=== PATIENT | male | born 1990 | race Caucasian/White ===

== ENCOUNTER 2023-02-07 05:30 | Day surgery (SDC) | payer OTHER ==
--- NOTE | 2023-02-07 07:30 | NUR ---
PATIENT ARRIVES TO UNIT WITH MOTHER AFTER STAFF ASSISTED PATIENT FROM WAITING ROOM. PATIENT WITH UNSTEADY GAIT. PUPILS AT PINPOINT. SLURRED SPEECH. ASKED PATIENT WHEN LAST OPIATE USE WAS HE STATED 0600 MOTHER STATED HE USED RIGHT BEFORE WALKING IN. PATIENT BECAME VERBALLY AGGRESSIVE. PATIENT SIGNED CONSENT. ATTEMPTED TO OBTAIN MEDICALHISTORY FROM PATIENT. PATIENT CONTINUED TO BE VERBALLY AGGRESSIVE STATING HE DOES NOT WANT THE PROCEDURE. NOTIFIED MEMBER OF TECHNICAL STAFF AND ANR TEAM. PATIENT DEPARTED UNIT TO MOTHER. CHARGE NURSE RUBY TO TALK TO PATIENT AND MOTHER. PATIENT STILL VERBALLY AGRESSIVE. MEMBER OF TECHNICAL STAFF JUDITH CALLED MOTHER AND EXPLAINED TO HER THAT WE ARE UNABLE TO TREAT HIM IN THIS STATE. OFFERRED TO REEVALUATE HIM IN 2 HOURS. MOTHER AGREED.
--- NOTE | 2023-02-07 07:40 | NUR ---
spoke with patient mother explained that in his state and how he is being aggressive towards staff we cannot treat him. offered to reevaluate him in 2 hours and proceed with treatment.
--- NOTE | 2023-02-07 10:00 | NUR ---
patient and mother arrive to [facility]. patient with no shoes shouting and cursing mother crying. mother asked me to call police because she is in fear to get back in car with patient because of how aggressive he is being towards her. i called 911. apd arrived spoke with patient. patient refused treatment at this time. explained options to mother and to contact anr office once patient has met those options.
== END 2023-02-07 07:30 | disposition home or self-care (01) | DRG 897 ==
LOC: ANR 05:30 → MS2 05:30 → ANR 07:30
PROVIDERS: ATTEND Anesthesiology Critical Care Medicine
DX: F11.20 Opioid dependence, uncomplicated (principal); Z53.9 Procedure and treatment not carried out, unspecified reason